=== PATIENT | male | born 1945 | race Caucasian/White ===

== ENCOUNTER 2022-12-13 13:35 | Emergency (ER) | payer MEDICARE, OTHER, SELFPAY ==
[2022-12-13] VITALS (47 sets, daily range): BP systolic 146–201; BP diastolic 62–175; PULSE 79–121; RESP 14–31; TEMP 36.6; O2SAT 89–100
--- NOTE | 2022-12-13 14:15 | DI.CT_ITS ---
Exam(s) CT LUMBAR SPINE RECONS CT ABDOMEN PELVIS W EXAM: CT ABDOMEN PELVIS W CLINICAL HISTORY: fall on step, back pain. TECHNIQUE: Imaging Protocol: Axial computed tomography images with coronal and sagittal reformatted images were created and reviewed Axial, coronal and sagittal images of the spine were reconstructed from the abdomen pelvic CT. CONTRAST MATERIAL: Intravenous: Omnipaque 350 Contrast volume:100 ml Oral: no COMPARISON: CT CT LUMBAR SPINE RECONS from 12/13/2022 FINDINGS: ABDOMEN: Lung Bases: Tiny left pleural effusion. Dependent changes. Liver: Normal density. No measurable mass. Gallbladder and biliary tract: No radiodense calculus or dilation. Pancreas: Normal density, no abnormal calcifications or inflammatory process. Spleen: Normal. Kidneys: Normal size, contour and axis. No radiodense stones or obstructive uropathy. 1.8 x 1.5 centi meter low density lesion at noted at the inferior pole of the left kidney is not appear to represent a simple cyst. Simple cyst is noted at the lower pole of the right kidney. Adrenal glands: No masses seen. Abdominal Aorta: Abdominal portion non-dilated. Atherosclerotic changes. Soft tissues: Unremarkable. Spine: Acute T11 compression fracture. Visible fracture line extending through body. Slight retropu lsion of inferior endplate. Approximate compression of 20 percent. Some surrounding soft tissue sg ma. PELVIS: Bladder: No gross wall thickening. No calculi.No focal mass. Bowel: No obstruction. No bowel wall thickening. Appendix normal. Peritoneal cavity: No ascites, collection or mesenteric inflammatory response. Bones: nondisplaced fracture at the mid right sacrum. Reproductive organs: Within normal limits. Lymph nodes: Unremarkable. Impression: 20 percent compression fracture of T11. Slight retropulsion of inferior endplate but no significant c entral canal stenosis. Nondisplaced fracture right sacrum. 1.8 centimeter low-density lesion at the lower pole of the left kidney. Further evaluation with MRI r ecommended. Unexpected findings RADIATION DOSE DELIVERED: 736.08 mGy.cm Total DLP DATA REPOSITORY: All CT scans at this facility are submitted to the National Radiology Data Registry (NRDR) Dose Index Registry (DIR) with the [employer] ([employer]). RADIATION OPTIMIZATION: All CT scans at this facility use at least one of these dose optimization te chniques: automated exposure control; mA and/or kV adjustment per patient size (includes targeted exa ms where dose is matched to clinical indication); or iterative reconstruction.
[2022-12-13] MEDS: Lactated Ringers 500 ML IV (14:36)
[2022-12-13] MEDS: diazePAM 2 MG TAB PO (14:36)
[2022-12-13 14:39] LABS: Abs Immature Grans 0.02 10^3/uL (0.0-0.06); Absolute Basophil Count 0.03 10^3/uL (0.0-0.2); Absolute Lymphocyte Count 1.51 10^3/uL (1.2-3.4); Absolute Monocyte Count 0.56 10^3/uL (0.1-0.8); Basophils % 0.4; Eosinophils % 1.3; HCT 39.7 % (40.0-50.0); HGB 14.4 g/dL (13.5-17.5); Immature Grans % 0.3; Lymphocytes % 19.8; MCH 32.5 pg (27.0-33.0); MCHC 36.3 % (32.0-36.0); MCV 90 fL (80-95); MPV 8.8 fL (8.0-11.0); Monocytes % 7.3; Neutrophils % 70.9; Platelet Count 233 10^3/uL (130-400); RBC 4.43 10^6/uL (4.36-5.78); RDW 11.9 % (11.8-14.1); RDW-SD 38.9 fL; WBC 7.62 10^3/uL (4.4-10.8)
[2022-12-13 14:56] LABS: ALT 25 U/L (16-63); AST 17 U/L (15-37); Albumin 3.3 g/dL (3.4-5.0); Alkaline Phosphatase 57 U/L (46-116); Anion Gap 7.7 mmol/L (3-11); BUN 16 mg/dL (7-18); Bilirubin, Total 1.1 mg/dL (0.2-1.0); CO2 32.3 mmol/L (21.0-32.0); CREATININE 1.2 mg/dL (0.70-1.30); Calcium 9.4 mg/dL (8.5-10.1); Chloride 95 mmol/L (98-107); Estimated GFR 62.67 (mL/min/1.73m2); Glucose 166 mg/dL (74-106); Lipase 14 U/L (16-77); Sodium 135 mmol/L (136-145)
[2022-12-13 14:59] LABS: Potassium 2.8 mmol/L (3.5-5.1)
--- NOTE | 2022-12-13 15:15 | RT.EKG_ITS ---
APPROVED REPORT Exam: Resting ECG Reason for Exam: low potassium Patient Location: E HR:82 bpm ECG Measurements Heart Rate 82 AXIS WY 61 P 0 QRSd 92 QRS -2 QT 374 T 14 QTc 436 Conclusion Sinus rhythm...normal P axis, V-rate 60- 99 Low voltage, extremity leads...all extremity leads <0.5mV Nonspecific T abnormalities, lateral leads...T <-0.10mV, I aVL V5 V6
[2022-12-13] MEDS: Potassium Chloride 20 MEQ TABCR 40 MEQ PO (15:19)
[2022-12-13] MEDS: POTASSIUM CHLORIDE 20 MEQ/100 ML BAG 50 MEQ IVPB (15:20)
[2022-12-13] MEDS: Omnipaque 350 MG/ML 100 ML BTL IJ (15:44)
[2022-12-13] MEDS: Normal Saline - Diluent 50 ML VIAL IJ (15:45)
--- NOTE | 2022-12-13 16:01 | W.ED.GENAD ---
Discharge Plan Disposition Patient Disposition: Home Condition: Stable Discharge Details Clinical Impression: Contusion of back, Acute hypokalemia Primary Care Provider: None,None ED Provider: Marlys Leone Home Meds and New Rx's Prescriptions: New potassium chloride 20 mEq tablet extended release 20 meq PO DAILY Qty: 10 0RF diazepam [Valium] 2 mg tablet 2 mg PO BID PRNQty: 8 0RF cyclobenzaprine 10 mg tablet 10 mg PO TID PRNQty: 20 0RF Continued hydrochlorothiazide 25 mg Tablet 12.5 mg PO DAILY cholecalciferol (vitamin D3) [Vitamin D3] 25 mcg (1,000 unit) Tablet,Chewable 25 mcg PO DAILY Discharge Instructions Instructions: Hypokalemia (ED), Contusion in Adults (ED) Additional Instructions: Please follow-up with your doctor when you return home Take the Valium sparingly as can be addictive, do not combine with alcohol or operate your vehicle for 8 hours after taking this medication Take the potassium as prescribed daily, your potassium is low, recommend having an Ensure or boost several times daily, it is very important that you consume regular foods and fluids Please return should you develop new or worsening complaints Referrals: None,None [Primary Care Provider] - (follow with primary care ) Discharge Data Discharge Date/Time-TO BE ENTERED AT DEPARTURE: 12/13/22 19:08 Medical Decision Making <RADHA Dick - Last Filed: 12/15/22 14:47> This 77-year-old male presents with report of back pain after a mechanical fall Given his age, comorbidities, and tachycardia, CT abdomen and pelvis were initiated Diagnostic labs were initiated and lumbar spine reconstruction were administered Patient with hypokalemia, 2.8, given 20 mEq of IV potassium and will give oral supplement potassium, IV fluids for suspected dehydration Patient given muscle relaxant, Valium [address] abdomen and pelvis and lumbar spine pending at this time, urinalysis pending at this time, reevaluation pending at this time otherwise suspect patient if has negative CTs will be stable for discharge home, care will be transitioned under Marlys Leone practitioner 1615, patient still in discomfort, given 50 mcg of fentanyl, still pending CTs and ambulatory trial [id number] 12/15/22: Patient made aware regarding sacral a fracture and informed to follow-up with primary care physician regarding CT findings, they were given the virtual radiology report which discuss multiple diagnostic findings, he was encouraged to review all the findings with his primary care physician and also made aware regarding a right sacral fracture which will likely need physical therapy and reassessment patient very clear that t11-t12 compression fracture was a chronic issue for which he is followed outpatient at home. he reports his pain is lateral low back and muscle pain. he tried oxycodone and tramadol with minimal relief of his symptoms, although he only tried one dose of each. His imaging [place] [facility] recommendations for additional imaging of the T spine which the patient declines at this time as he states this is not new and not where his pain is. He feels that a muscle relaxer would provide the most relief at this time. Flexeril 10 mg orally given with some improvement. He is re-ambulated and stating he is ready for discharge, again, declining additional imaging. He is discharged with his son, instructed to return for new or worsening symptoms. <Marlys Leone, BOARD CERTIFIED BEHAVIORAL ANALYST - Last Filed: 12/14/22 11:21> This 77-year-old male presents with report of back pain after a mechanical fall Given his age, comorbidities, and tachycardia, CT abdomen and pelvis were initiated Diagnostic labs were initiated and lumbar spine reconstruction were administered Patient with hypokalemia, 2.8, given 20 mEq of IV potassium and will give oral supplement potassium, IV fluids for suspected dehydration Patient given muscle relaxant, Valium [address] abdomen and pelvis and lumbar spine pending at this time, urinalysis pending at this time, reevaluation pending at this time otherwise suspect patient if has negative CTs will be stable for discharge home, care will be transitioned under Marlys Leone practitioner 1615, patient still in discomfort, given 50 mcg of fentanyl, still pending CTs and ambulatory trial patient very clear that t11-t12 compression fracture was a chronic issue for which he is followed outpatient at home. he reports his pain is lateral low back and muscle pain. he tried oxycodone and tramadol with minimal relief of his symptoms, although he only tried one dose of each. His imaging was discussed with [place] [facility] [place] recommendations for additional imaging of the T spine which the patient declines at this time as he states this is not new and not where his pain is. He feels that a muscle relaxer would provide the most relief at this time. Flexeril 10 mg orally given with some improvement. He is re-ambulated and stating he is ready for discharge, again, declining additional imaging. He is discharged with his son, instructed to return for new or worsening symptoms. Medical Records Medical records reviewed: Yes I reviewed the patient's medical records. HPI <RADHA Dick - Last Filed: 12/15/22 14:47> General Date/Time Provider Initiated Documentation: 12/13/22 13:55. HPI Narrative: This 77-year-old gentleman with history of hypertension, hyperlipidemia visiting from [place] presents after a mechanical fall 2 days prior to arrival. He was carrying some bags of stairs when he lost his balance when he got to the top, falling down 2 stairs and hitting his flank region. He has had persistent pain since that time. He states secondary to the pain he has not had interest in eating or drinking. He denies history of coagulopathy. He denies strength or sensation changes to his extremities or any additional complaints at this time. He denies any fever or chills. Pain is exacerbated with movement. Denies any head or neck injury. Related Data Home Medications Medication Instructions Recorded Confirmed cholecalciferol (vitamin D3) 25 25 mcg PO DAILY 12/13/22 12/13/22 mcg (1,000 unit) chewable tablet (Vitamin D3) cyclobenzaprine 10 mg tablet 10 mg PO TID PRN #20 tabs 12/13/22 diazepam 2 mg tablet (Valium) 2 mg PO BID PRN #8 tabs 12/13/22 hydrochlorothiazide 25 mg tablet 12.5 mg PO DAILY 12/13/22 12/13/22 potassium chloride 20 mEq 20 meq PO DAILY #10 tabs 12/13/22 tablet,extended release Previous Rx's Medication Instructions Recorded cyclobenzaprine 10 mg tablet 10 mg PO TID PRN #20 tabs 12/13/22 diazepam 2 mg tablet (Valium) 2 mg PO BID PRN #8 tabs 12/13/22 potassium chloride 20 mEq 20 meq PO DAILY #10 tabs 12/13/22 tablet,extended release Allergies Allergy/AdvReac Type Severity Reaction Status Date / Time indomethacin AdvReac Headache Unverified 12/13/22 13:48 General Stated Complaint: Orthopedic ERICKSON: 3 <Marlys Leone NP - Last Filed: 12/14/22 11:21> General Limitations to Documentation: no limitations. Information obtained by: patient. PFSH <RADHA Dick - Last Filed: 12/15/22 14:47> All Active Problems (Updated 12/13/22 @ 16:08 by RADHA Dick) Contusion of back (Acute) Acute hypokalemia (Acute) Social History Smoking/Tobacco Use Status: Never Smoking risk assessment performed?: Yes Drug use: Never Substance use type: does not use Housing: house Do you feel safe at home: Yes Do you feel safe in your relationship?: Yes Course <RADHA Dick - Last Filed: 12/15/22 14:47> Vital Signs Vital signs: Vital Signs Temperature 36.6 C 12/13/22 13:41 Pulse 115 H 12/13/22 13:41 Respiratory Rate 18 12/13/22 13:41 Blood Pressure 154/84 H 12/13/22 13:41 Pulse Oximetry 98 12/13/22 13:41 Temperature 36.6 C 12/13/22 13:41 Pulse 115 H 12/13/22 13:41 Respiratory Rate 18 12/13/22 13:41 Respiratory Effort Normal 12/13/22 13:46 Blood Pressure 154/84 H 12/13/22 13:41 Blood Pressure Position Sitting 12/13/22 13:41 Pulse Oximetry 98 12/13/22 13:41 Oxygen Delivery Method Room Air 12/13/22 13:41 Oxygen Flow Rate 0 12/13/22 13:41 Pain Level 9 12/13/22 14:19 Lab/Test Results Lab/Test Results: Laboratory Tests Range/Units 12/13/22 12/13/22 12/13/22 14:30 14:30 14:30 WBC (4.4-10.8) 10^3/uL 7.62 RBC (4.36-5.78) 10^6/uL 4.43 Hgb (13.5-17.5) g/dL 14.4 Hct (40.0-50.0) % 39.7 L MCV (80-95) fL 90 MCH (27.0-33.0) pg 32.5 MCHC (32.0-36.0) % 36.3 H RDW (11.8-14.1) % 11.9 Plt Count (130-400) 10^3/uL 233 MPV (8.0-11.0) fL 8.8 Immature Gran % 0.3 Neutrophils % 70.9 Lymphocytes % 19.8 Monocytes % 7.3 Eosinophils % 1.3 Basophils % 0.4 Nucleated RBC % (0.0-0.3) % 0.0 Absolute Neutrophils (1.2-6.7) 10^3/uL 5.40 Absolute Lymphocytes (1.2-3.4) 10^3/uL 1.51 Absolute Monocytes (0.1-0.8) 10^3/uL 0.56 Absolute Eosinophils (0.0-0.7) 10^3/uL 0.10 Absolute Basophils (0.0-0.2) 10^3/uL 0.03 Sodium (136-145) mmol/L 135 L Potassium (3.5-5.1) mmol/L 2.8 L* Chloride (98-107) mmol/L 95 L Carbon Dioxide (21.0-32.0) mmol/L 32.3 H Anion Gap (3-11) mmol/L 7.7 BUN (7-18) mg/dL 16 Creatinine (0.70-1.30) mg/dL 1.2 Est GFR (CKD-EPI 2020) (mL/min/1.73m2) 62.67 Glucose (74-106) mg/dL 166 H Calcium (8.5-10.1) mg/dL 9.4 Total Bilirubin (0.2-1.0) mg/dL 1.1 H AST (15-37) U/L 17 ALT (16-63) U/L 25 Alkaline Phosphatase (46-116) U/L 57 Total Protein (6.4-8.2) g/dL 7.0 Albumin (3.4-5.0) g/dL 3.3 L Lipase (16-77) U/L 14 L Patient ABO/Rh O Positive Antibody Screen NEGATIVE Sign Out <RADHA Dick - Last Filed: 12/15/22 14:47> Sign Out Data: Sign Out Comment: pending ct, urinalysis, and potassium completion Last updated by Laura Knott PA at 12/13/22 16:11
[2022-12-13] MEDS: fentaNYL 100 MCG/2 ML VIAL 50 MCG IVP (16:34)
--- NOTE | 2022-12-13 16:43 | DI.VRAD_ITS ---
Addendum created by Parisa Reyes MD on 12/13/2022 4:43:45 PM EDT: Dictation error: Compression fracture is at T11 vertebral body Initial report created on 12/13/2022 4:43:07 PM EDT: PROCEDURE INFORMATION: Exam: CT Lumbar Spine Without Contrast Exam date and time: 12/13/2022 3:45 PM Age: 77 years old Clinical indication: Low back pain; Patient HX: Fall on step, back pain TECHNIQUE: Imaging protocol: Computed tomography of the lumbar spine without contrast. COMPARISON: No relevant prior studies available. FINDINGS: Bones/joints: Compression fracture at T12 with approximately 20% loss of vertebral body height. Retropulsion of bone 4 mm into the thoracic canal. No canal stenosis. Mild broad disc bulge at L5-S1. Multilevel facet arthropathy. Soft tissues: Soft tissue edema adjacent to the T11 vertebral body. IMPRESSION: 1. Compression fracture at T12 with approximately 20% loss of vertebral body height. Retropulsion of bone 4 mm into the thoracic canal. No canal stenosis. 2. Soft tissue edema adjacent to the T11 vertebral body. Dictated and Authenticated by: Parisa Reyes MD. Ordering:ELDA Sanchez MD
--- NOTE | 2022-12-13 16:43 | DI.VRAD_ITS ---
PROCEDURE INFORMATION: Exam: CT Abdomen And Pelvis With Contrast Exam date and time: 12/13/2022 3:45 PM Age: 77 years old Clinical indication: Abdominal pain and other: Back pain; Patient HX: Fall on step, back pain TECHNIQUE: Imaging protocol: Computed tomography of the abdomen and pelvis with contrast. COMPARISON: No relevant prior studies available. FINDINGS: Lungs: Mild bibasilar atelectasis. Liver: Normal. No mass. Gallbladder and bile ducts: Normal. No calcified stones. No ductal dilation. Pancreas: Normal. No ductal dilation. Spleen: Normal. No splenomegaly. Adrenal glands: Normal. No mass. Kidneys and ureters: Simple cortical renal cyst midpole right kidney measures 5.6 x 5.3 cm. No hydronephrosis. Low-attenuation lesion along the inferior pole left kidney measures 1.5 x 1.8 cm, not simple cyst. Additional workup could be performed with ultrasound examination. Stomach and bowel: Unremarkable. No obstruction. No mucosal thickening. Appendix: No evidence of appendicitis. Intraperitoneal space: Unremarkable. No free air. No significant fluid collection. Vasculature: Unremarkable. No abdominal aortic aneurysm. Lymph nodes: See Bones/joints finding. Urinary bladder: Unremarkable as visualized. Reproductive: Unremarkable as visualized. Bones/joints: Acute compression at T11 with approximately 20% loss of vertebral body height. Retropulsion of bone extends 4 mm into the thoracic canal. No canal stenosis. Soft tissues: Mild perivertebral soft tissue edema adjacent to T11 vertebral body. IMPRESSION: 1. Acute compression at T11 with approximately 20% loss of vertebral body height. Retropulsion of bone extends 4 mm into the thoracic canal. No canal stenosis. 2. Mild bibasilar atelectasis. 3. Mild perivertebral soft tissue edema adjacent to T11 vertebral body. 4. Low-attenuation lesion along the inferior pole left kidney measures 1.5 x 1.8 cm, not simple cyst. Additional workup could be performed with ultrasound examination. Dictated and Authenticated by: Parisa Reyes MD. Ordering:ELDA Sanchez MD
[2022-12-13] MEDS: Ketorolac 30 MG/ML VIAL IVP (17:05)
[2022-12-13] MEDS: Acetaminophen 500 MG TAB 1000 MG PO (17:05)
[2022-12-13] MEDS: Lactated Ringers 1,000 ML 100 ML IV (17:57)
[2022-12-13] MEDS: Cyclobenzaprine 10 MG TAB PO (17:59)
[2022-12-13] MEDS: Cyclobenzaprine 10 MG TAB, 3 TABS/BTL PO (19:06)
== END 2022-12-13 19:08 | disposition home or self-care (01) ==
PROVIDERS: Physician Assistant; Emergency Provider Nurse Practitioner Acute Care
DX: S30.0XXA Contusion of lower back and pelvis, initial encounter (principal); W10.9XXA Fall (on) (from) unspecified stairs and steps, initial encounter; E87.6 Hypokalemia
CPT/HCPCS: 80053; 83690; 86850; 86900; 86901; 93005; 96361; 96365; 96366; 96375; 99285; 74177; 81003; 81015; 85025; 87086; 93010; 99284; J1885; J3010; J3480; J3490